=== PATIENT | female | born 1960 | race Caucasian/White ===

== ENCOUNTER 2020-06-06 13:24 | Emergency (ER) | payer SELFPAY ==
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
[2020-06-06 16:20] VITALS: BP 141/94; TEMP 98.9; O2SAT 100
== END 2020-06-06 16:12 | disposition left against medical advice (07) ==
LOC: ER 13:24
DX: Z53.21 Procedure and treatment not carried out due to patient leaving prior to being seen by health care provider (principal)
CPT/HCPCS: 99281

== ENCOUNTER 2020-06-06 21:07 | Emergency (ER) | payer OTHER ==
[2020-06-06] MEDS ORDERED: ACETAMINOPHEN 500 MG TAB ONE (22:34)
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
[2020-06-07 00:47] VITALS: TEMP 97.7
[2020-06-07 00:48] VITALS: O2SAT 96
[2020-06-07 00:50] VITALS: BP 167/78
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
== END 2020-06-07 00:12 | disposition home or self-care (01) ==
LOC: ER 21:07
DX: S70.01XA Contusion of right hip, initial encounter (principal); S40.022A Contusion of left upper arm, initial encounter; M16.11 Unilateral primary osteoarthritis, right hip; W19.XXXA Unspecified fall, initial encounter; Z88.0 Allergy status to penicillin; Z98.82 Breast implant status
CPT/HCPCS: 72170; 99283